=== PATIENT | male | born 1970 | race Two or more races ===

== ENCOUNTER 2016-07-22 08:39 | Emergency (ER) | payer OTHER ==
[~2016-07-22] VITALS: Ht 167.6 cm; Wt 61.2 kg
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
[2016-07-22 09:24] VITALS: BP 130/80
--- NOTE | 2016-07-23 15:58 | Diagnostic Imaging Report ---
Indications: Percutaneous gastrostomy tube replacement Technique: Portable AP view of the abdomen with administration of water soluble contrast through gastrostomy tube Findings: Comparison: None Percutaneous gastrostomy tube is present in the stomach. Injected contrast opacifies lumens of the tube, stomach both proximal and distal to the tube, and proximal small bowel. All are normal in caliber. No extraluminal contrast extravasation is demonstrated. Abdomen and pelvis incompletely imaged. Visualized portions of bowel gas pattern unremarkable. Degenerative changes are present in the lumbar spine. IMPRESSION: Percutaneous gastrostomy tube in stomach. No evidence of obstruction or extravasation. No other evidence of acute abdominopelvic disease, with limitation as described. Chronic changes as described.
== END 2016-07-22 09:25 ==
LOC: EDBD 08:39 → EMR 08:50
DX: K94.23 Gastrostomy malfunction (principal); Y83.3 Surgical operation with formation of external stoma as the cause of abnormal reaction of the patient, or of later complication, without mention of misadventure at the time of the procedure; Y92.9 Unspecified place or not applicable; Z93.0 Tracheostomy status; Z87.820 Personal history of traumatic brain injury
CPT/HCPCS: 43760; 74000; 99284; Q9963